=== PATIENT | male | born 1960 | race Two or more races ===

== ENCOUNTER 2017-05-12 11:18 | Emergency (ER) | payer OTHER ==
[~2017-05-12 11:18] MED LIST: ATARAX PO; BENADRYL25 M3 PO; FLOMAX0.4 M1 PO; KEFLEX250 M1 PO; LORTAB 5/500 TA1 TA1 PO; MOBIC15 MG PO; PREDNISONE10 MG PO; PRILOSEC20 MG PO; SYMBICORT INH; VITAMIN D10000 UNIT PO
[2017-05-12] MEDS ORDERED: MOBIC PO (11:26)
[2017-05-12] MEDS ORDERED: SYMBICORT INH (11:26)
[2017-05-12] MEDS ORDERED: PRILOSEC PO (11:26)
== END 2017-05-12 12:06 | disposition home or self-care (01) ==
LOC: SED 11:18
DX: J01.90 Acute sinusitis, unspecified (principal); F44.9 Dissociative and conversion disorder, unspecified; F17.210 Nicotine dependence, cigarettes, uncomplicated; Z79.899 Other long term (current) drug therapy
CPT/HCPCS: 99283